=== PATIENT | female | born 1990 | race Caucasian/White ===

== ENCOUNTER → 2024-01-06 09:39 | Outpatient (REF) | payer BC, SELFPAY | LOC: RCS 09:39 | PROVIDERS: ATTENDING PHYSICIAN Nurse Practitioner; FAMILY PHYSICIAN Internal Medicine | DX: R00.2 Palpitations (principal) | CPT/HCPCS: 93225; 93226 ==

== ENCOUNTER → 2024-02-03 12:52 | Outpatient (REF) | payer BC, SELFPAY | LOC: HWRCS 12:52 | PROVIDERS: ATTENDING PHYSICIAN Nurse Practitioner; FAMILY PHYSICIAN Internal Medicine | DX: R06.02 Shortness of breath (principal) | CPT/HCPCS: 93306 ==

== ENCOUNTER → 2024-09-20 13:26 | Outpatient (REF) | payer BC, SELFPAY | LOC: PNTC 13:26 | PROVIDERS: ATTENDING PHYSICIAN Obstetrics & Gynecology | DX: Z36.0 Encounter for antenatal screening for chromosomal anomalies (principal); Z36.83 Encounter for fetal screening for congenital cardiac abnormalities; Z36.82 Encounter for antenatal screening for nuchal translucency | CPT/HCPCS: 36415; 76801; 76813 ==

== ENCOUNTER → 2024-10-15 11:16 | Outpatient (REF) | payer BC, SELFPAY | LOC: PNTC 11:16 | PROVIDERS: ATTENDING PHYSICIAN Obstetrics & Gynecology | DX: O09.819 Supervision of pregnancy resulting from assisted reproductive technology, unspecified trimester (principal); O10.119 Pre-existing hypertensive heart disease complicating pregnancy, unspecified trimester | CPT/HCPCS: 76805 ==

== ENCOUNTER 2024-11-09 14:26 | Emergency (ER) | payer BC, SELFPAY ==
[2024-11-09 14:36] VITALS: BP 126/72
[2024-11-09 14:56] LABS: % Basophils 0.4 % (0-2); % Eosinophils 2.4 % (0-6); % Immature Granulocytes 0.4 % (0-0.5); % Lymphocytes 28.1 % (20.5-51.1); % Monocytes 7.6 % (1.7-9.3); % Neutrophils 61.1 % (42.2-75.2); Absolute Eosinophils 0.2 10^3/uL (0-0.7); Absolute Lymphocytes 2.3 10^3/uL (1.2-3.4); Absolute Monocytes 0.6 10^3/uL (0.1-0.6); Absolute Neutrophils 4.9 10^3/uL (1.4-6.5); Hematocrit 30.6 % (37.0-47.0); Hemoglobin 10.3 g/dL (12.0-16.0); Mean Corp Hgb Conc. 33.7 g/dL (33.0-37.0); Mean Corpuscular Hgb 27.9 pg (27.0-31.0); Mean Corpuscular Volume 82.9 fL (81.0-99.0); Mean Platelet Volume 9.9 fL (7.4-10.4); Nucleated Red Blood Cells % 0 %; Platelet Count 338 10^3/uL (130-400); Red Blood Cell Count 3.69 10^6/uL (4.20-5.40)
[2024-11-09 15:07] LABS: ALT (SGPT) 14 U/L (0-35); AST (SGOT) 16 U/L (14-36); Albumin 3.6 g/dl (3.5-5.0); Alkaline Phosphatase 78 U/L (38-126); Blood Urea Nitrogen 9 mg/dl (7-17); Calcium 9.3 mg/dl (8.4-10.2); Carbon Dioxide 25 mmol/L (22-30); Chloride 103 mmol/L (98-107); Glucose 110 mg/dl (70-99); Potassium 3.5 mmol/L (3.5-5.1); Sodium 135 mmol/L (135-145); Total Bilirubin 0.6 mg/dl (0.2-1.3); Total Protein 6.5 g/dl (6.3-8.2); eGFR > 60.00
--- NOTE | 2024-11-09 17:45 | ED.GENMED ---
History of Present Illness
General
Chief Complaint: Heart Rate Problem
Source: patient
Exam Limitations: none
Time Seen by Provider: 11/09/24 17:36
Nursing documentation reviewed up to this point in time: agreed with
History of Present Illness
History of Present Illness:
Patient to ED with complaint of SOB, palpitations Symptoms started last PM and continue. Brought to ED by spouse for eval.
Past History
Past History
ED Past Medical History: Asthma, GERD, HTN, Hypothyroidism and Other (Pre-eclampsia hx)
Review of Systems
Review of Systems
Allergies reviewed?: Yes
All Other Systems: ROS reviewed and negative except as documented in HPI and ROS
Constitutional: Reports no symptoms
EENT: Reports no symptoms
Respiratory: Reports trouble breathing
Cardiac: Reports no symptoms
ABD/GI: Reports no symptoms
: Reports no symptoms
Musculoskeletal: Reports no symptoms
Skin: Reports no symptoms
Neurological: Reports no symptoms
Psychiatric: Reports no symptoms
Phy Exam
General Physical Exam
General Presentation: well appearing and mild distress
General age: appears stated age
General Skin: warm
General Habitus: normal
General Mental: alert
Cardiovascular Exam
Cardiovascular Exam: regular rate/rhythm
Pulmonary Exam
Pulmonary Exam: lungs clear, no respiratory distress and chest non tender
Gastrointestinal Exam
Gastrointestinal Exam: non tender and soft
Musculoskeletal Exam
Musculoskeletal Exam: full ROM
Skin Exam
Skin Exam: normal color, warm/dry and no rash
Psychiatric Exam
Psychiatric Exam: normal mood/affect
Course
Orders/Labs/Results
Orders:
Orders
11/09/24 14:35
Electrocardiogram (*1) Urgent
Reason for Study: Chest Pain
EKG- Treatment ONCE
11/09/24 14:46
Complete Blood Count/With Diff Urgent
Comprehensive Metabolic Panel Urgent
11/09/24 18:10
D-Dimer Urgent
11/09/24 19:05
CT Chest PE Study Urgent
Comment:
Reason For Exam: Chest tightness, SOB. 19weeks
11/09/24 19:15
UA Reflex to Culture [Urinalysis Reflex To Culture] Urgent
Date Specimen was Collected: 11/09/24
Time Specimen was Collected: 19:15
Abnormal Lab Results
11/09/24 11/09/24
14:46 18:10
RBC 3.69 L 10^6/uL
(4.20-5.40)
Hgb 10.3 L g/dL
(12.0-16.0)
Hct 30.6 L %
(37.0-47.0)
D-Dimer 1.54 H ug/mlFEU
(0.00-0.50)
Creatinine 0.3 L mg/dL
(0.6-1.0)
Glucose 110 H mg/dl
(70-99)
11/09/24 14:46
11/09/24 14:46
Vital Signs
Initial and Last Documented VS:
Initial Vital Signs
Temp Pulse Resp BP Pulse Ox
98.6 F 74 16 126/72 98
11/09/24 14:36 11/09/24 14:36 11/09/24 14:36 11/09/24 14:36 11/09/24 14:36
Last Documented Vital Signs
Temp Pulse Resp BP Pulse Ox
98.6 F 74 16 126/72 98
11/09/24 14:36 11/09/24 14:36 11/09/24 14:36 11/09/24 14:36 11/09/24 14:36
*Radiology
Radiology exam reviewed: radiology read reviewed
*Pulse Oximetry
Patient hypoxic: no
*Critical Care Note
Total Time (30-74mins, 75-104mins- exclusive of procedures): Not Applicable
Update Note
Update Note:
Patient to ED with complaint of SOB x 24 hours. SHe is 19 weeks . States SOB come on suddenly. Labs reviewed. Ddimer 1.5. Dr. Copeland aware. Sent for CT, results neg for PE. Pulse ox remains 96-98% RA. HRR. WIll discharge home and
she will continue to f/u with OB and PCP. Given instructions on s/s to return to ED and she is agreeable to plan.
ED Attending Note
-
Portions of this chart may have been created with voice recognition software.� Occasional wrong word or��sound alike� substitutions may have occurred due to the inherent limitations of voice recognition software.
Discharge Plan
Departure
Patient Disposition: Home (Routine Discharge)
Date of Disposition: 11/09/24
Time of Disposition: 20:02
Patient with high blood pressure during this ER visit?: No
Condition: Good
Covid-19: Not Applicable
Discharge Problem:
GRAHAM (dyspnea on exertion)
Instructions: Shortness of breath, Palpitations (DC)
Prescriptions:
No Action
Feosol
1 tab PO DAILY
Vitamin
1 tab PO DAILY
Synthroid
50 mcg PO DAILY
famotidine
1 tab PO DAILY
magnesium citrate
1 PO DAILY
montelukast
ibuprofen 600 mg Tablet
600 mg PO Q6HPRN PRN (Reason: CRAMPS) Qty: 90 0RF
labetalol 100 mg Tablet
100 mg PO BID Qty: 90 0RF
Referrals:
Lydia Bolaños MD [Family Provider] - Follow up in 2-3 days
Activity Restrictions/Additional Instructions:
Return to the emergency department immediately for any changes in/worsening of your symptoms.
Interventions
Interventions:
*Risk Screen - Suicide Last Done: 11/09/24 14:36
*Neglect/Abuse Screening Last Done: 11/09/24 14:36
ED- Fall Risk Assessment Last Done: 11/09/24 18:14
ED- Cardiac Assessment Last Done: 11/09/24 18:14
ED- Pulmonary Assessment Last Done: 11/09/24 18:14
Discharge Date and Time
Print Language: CUBAN
[2024-11-09 18:28] LABS: D-Dimer 1.54 ug/mlFEU (0.00-0.50)
[2024-11-09 19:14] VITALS: BP 124/67
[2024-11-09 20:00] VITALS: BP 110/61
[2024-11-09 20:04] VITALS: BP 107/64
[2024-11-09 20:13] LABS: Urine Albumin Negative (Neg - Trace); Urine Bilirubin Negative (Negative); Urine Character Clear (Clear); Urine Color Yellow; Urine Glucose Negative (Negative); Urine Ketone Negative (Negative); Urine Leukocyte Negative (Negative); Urine Nitrite Negative (Negative); Urine Occult Blood Negative (Negative); Urine Urobilinogen Negative (Neg - 1+)
== END 2024-11-09 20:29 | disposition home or self-care (01) ==
LOC: EMR 14:26
PROVIDERS: Nurse Practitioner; EMERGENCY PHYSICIAN Emergency Medicine; FAMILY PHYSICIAN Internal Medicine
DX: O26.892 Other specified pregnancy related conditions, second trimester (principal); R06.09 Other forms of dyspnea; Z3A.19 19 weeks gestation of pregnancy
CPT/HCPCS: 99285; 71275; 80053; 81003; 85025; 85379; 93005; Q9967

== ENCOUNTER → 2024-11-12 13:24 | Outpatient (REF) | payer BC, SELFPAY | LOC: PNTC 13:24 | PROVIDERS: ATTENDING PHYSICIAN Obstetrics & Gynecology | DX: O10.119 Pre-existing hypertensive heart disease complicating pregnancy, unspecified trimester (principal); O09.819 Supervision of pregnancy resulting from assisted reproductive technology, unspecified trimester | CPT/HCPCS: 76811; 76817 ==

== ENCOUNTER → 2024-12-22 09:36 | Outpatient (REF) | payer BC, SELFPAY | LOC: RCS 09:36 | PROVIDERS: ATTENDING PHYSICIAN Student in an Organized Health Care Education/Training Program; FAMILY PHYSICIAN Internal Medicine | DX: R00.2 Palpitations (principal) | CPT/HCPCS: 93225; 93226 ==

== ENCOUNTER 2025-01-07 12:43 | Observation (INO) | payer BC, SELFPAY ==
[2025-01-07 13:46] VITALS: BP 128/57; BMI 33.4
[2025-01-07 13:50] LABS: % Basophils 0.3 % (0-2); % Eosinophils 2.5 % (0-6); % Immature Granulocytes 0.6 % (0-0.5); % Lymphocytes 18.2 % (20.5-51.1); % Monocytes 7.3 % (1.7-9.3); % Neutrophils 71.1 % (42.2-75.2); Absolute Eosinophils 0.3 10^3/uL (0-0.7); Absolute Immature Granulocytes 0.1 10^3/uL (0-0.05); Absolute Lymphocytes 1.8 10^3/uL (1.2-3.4); Absolute Monocytes 0.7 10^3/uL (0.1-0.6); Absolute Neutrophils 7.1 10^3/uL (1.4-6.5); Hematocrit 28.2 % (37.0-47.0); Hemoglobin 9.5 g/dL (12.0-16.0); Mean Corp Hgb Conc. 33.7 g/dL (33.0-37.0); Mean Corpuscular Hgb 28.1 pg (27.0-31.0); Mean Corpuscular Volume 83.4 fL (81.0-99.0); Nucleated Red Blood Cells % 0 %; Platelet Count 319 10^3/uL (130-400); Red Blood Cell Count 3.38 10^6/uL (4.20-5.40); Red Cell Dist. Width 13.7 % (11.5-14.5)
[2025-01-07 14:09] LABS: ALT (SGPT) 12 U/L (0-35); AST (SGOT) 17 U/L (14-36); Albumin 3.1 g/dl (3.5-5.0); Alkaline Phosphatase 104 U/L (38-126); Blood Urea Nitrogen 6 mg/dl (7-17); Calcium 9.1 mg/dl (8.4-10.2); Carbon Dioxide 27 mmol/L (22-30); Chloride 104 mmol/L (98-107); Estimated Creatinine Clearance 116 ml/min; Glucose 109 mg/dl (70-99); Potassium 3.1 mmol/L (3.5-5.1); Sodium 138 mmol/L (135-145); Total Bilirubin 0.7 mg/dl (0.2-1.3); Total Protein 5.8 g/dl (6.3-8.2); eGFR > 60.00
[2025-01-07 14:12] LABS: Urine Albumin 1+ (Neg - Trace); Urine Bilirubin Negative (Negative); Urine Character Clear (Clear); Urine Color Yellow; Urine Glucose Negative (Negative); Urine Ketone Negative (Negative); Urine Leukocyte Negative (Negative); Urine Nitrite Negative (Negative); Urine Occult Blood 1+ (Negative); Urine Specific Gravity 1.015 (<1.030); Urine Urobilinogen Negative (Neg - 1+)
[2025-01-07 14:44] LABS: Protein/creatinine Ratio 0.2; Urine Protein 14 mg/dl
[2025-01-07 15:20] LABS: Urine Amorphous Seen; Urine Squamous Cell 26-30 /LPF (Few); Urine Urothelial Cell 0-2 /LPF (FEW)
[2025-01-07 15:23] LABS: Urine White Cell 0-2 /HPF (0-5)
== END 2025-01-07 14:31 | disposition home or self-care (01) ==
LOC: PNTC-IN 12:43
PROVIDERS: ADMITTING PHYSICIAN Obstetrics & Gynecology
DX: O10.913 Unspecified pre-existing hypertension complicating pregnancy, third trimester (principal); R06.02 Shortness of breath; Z3A.28 28 weeks gestation of pregnancy
CPT/HCPCS: 80053; 81003; 81015; 82570; 84156; 85025; 86850; 86900; 86901; 87502; 87811; G0378

== ENCOUNTER 2025-01-07 14:34 | Emergency (ER) | payer BC, SELFPAY ==
[2025-01-07 14:54] VITALS: BP 133/71
[2025-01-07 19:42] VITALS: BP 117/81
--- NOTE | 2025-01-07 19:52 | ED.GENMED ---
History of Present Illness
<JOJO Malik - Last Filed: 01/07/25 22:29>
General
Chief Complaint: Breathing Problem
Source: patient and spouse
Exam Limitations: none
Time Seen by Provider: 01/07/25 19:40
History of Present Illness
History of Present Illness:
34 y/o 28-weeks female with a PMH of asthma, HTN, hypothyroid, GERD presenting to the ED c/o SOB and headache x 2 days. Pt states the SOB started 2 days ago, states she thought it was an asthma exacerbation so she has been using her
albuterol with minimal relief. SOB and headache are both exacerbated with exertion. The headache is intermittent, she describes it as 'all over'. She has been taking Tylenol with slight relief of the headache but it doesn't fully go away, last dose
of Tylenol at 10 am today. Pt reports associated cough and nasal congestion that started yesterday. Has not tried anything for cough or congestion. She also reports 2 episodes of post-tussive vomiting. Denies fever, sore throat, chest pain, vision
changes.
Past History
<JOJO Malik - Last Filed: 01/07/25 22:29>
Past History
ED Past Medical History: Asthma, GERD, HTN, Hypothyroidism and Other (Pre-eclampsia hx)
Phy Exam
<JOJO Malik - Last Filed: 01/07/25 22:29>
General Physical Exam
General Presentation: well appearing and no apparent distress
General age: appears stated age
General Skin: warm and dry
General Habitus: normal and other ( )
General Mental: alert
General Hydration: appears well hydrated
ENT Exam
ENT Exam: neck supple and normocephalic
Eye Exam
Eye Exam: conjunctiva normal
Cardiovascular Exam
Cardiovascular Exam: regular rate/rhythm, no gallop, no murmur and normal peripheral pulses
Pulmonary Exam
Pulmonary Exam: lungs clear, no respiratory distress, no rales, no crackles, no rhonchi and no wheezing
Cough: non productive cough
Gastrointestinal Exam
Gastrointestinal Exam: normal bowel sounds
Skin Exam
Skin Exam: normal color and warm/dry
Course
<ST KingPA - Last Filed: 01/07/25 22:29>
Orders/Labs/Results
Orders:
Orders
01/07/25 20:19
COVID-19 Antigen Urgent
Source: Nasal Swab
Influenza A+B Rapid Molecular Urgent
ASTRID Source: Nasal Swab
Specimen Description:
01/07/25 20:23
Potassium Chloride 10% Elixir [KCl Elixir] 40 meq PO NOW STA
Prednisone [Deltasone] 50 mg PO NOW STA
01/07/25 21:19
Ipratropium/Albuterol Sulfate [Duoneb] 3 ml INH R NOW STA
01/07/25 21:27
Influenza A+B Rapid Molecular Urgent
ASTRID Source: [place]AB
Specimen Description:
Vital Signs
Initial and Last Documented VS:
Initial Vital Signs
Temp Pulse Resp BP Pulse Ox
98.3 F 90 18 133/71 95
01/07/25 14:54 01/07/25 14:54 01/07/25 14:54 01/07/25 14:54 01/07/25 14:54
Last Documented Vital Signs
Temp Pulse Resp BP Pulse Ox
98.3 F 99 20 134/79 98
01/07/25 14:54 01/07/25 22:22 01/07/25 22:22 01/07/25 22:22 01/07/25 22:22
<Herbie Berg DO - Last Filed: 01/08/25 02:58>
Orders/Labs/Results
Orders:
Orders
01/07/25 20:19
COVID-19 Antigen Urgent
Source: Nasal Swab
Influenza A+B Rapid Molecular Urgent
ASTRID Source: Nasal Swab
Specimen Description:
01/07/25 20:23
Potassium Chloride 10% Elixir [KCl Elixir] 40 meq PO NOW STA
Prednisone [Deltasone] 50 mg PO NOW STA
01/07/25 21:19
Ipratropium/Albuterol Sulfate [Duoneb] 3 ml INH R NOW STA
01/07/25 21:27
Influenza A+B Rapid Molecular Urgent
ASTRID Source: [place]AB
Specimen Description:
Vital Signs
Initial and Last Documented VS:
Initial Vital Signs
Temp Pulse Resp BP Pulse Ox
98.3 F 90 18 133/71 95
01/07/25 14:54 01/07/25 14:54 01/07/25 14:54 01/07/25 14:54 01/07/25 14:54
Last Documented Vital Signs
Temp Pulse Resp BP Pulse Ox
98.3 F 99 20 134/79 98
01/07/25 14:54 01/07/25 22:22 01/07/25 22:22 01/07/25 22:22 01/07/25 22:22
<Herbie Berg DO - Last Filed: 01/08/25 02:58>
MDM/Problems Addressed
Differential Diagnosis Includes:
PE, pneumonia, asthma exacerbation
MDM/Problems Addressed:
34-year-old female with asthma exacerbation. Mild hypokalemia. Stable for discharge. Follow with primary care. Short course of prednisone.
Chronic conditions affecting care: Asthma
Acute Exacerbation and/or Progression of Chronic Illness: Asthma
<JOJO Malik - Last Filed: 01/07/25 22:29>
*Critical Care Note
Total Time (30-74mins, 75-104mins- exclusive of procedures): Not Applicable
<Herbie Berg DO - Last Filed: 01/08/25 02:58>
*Pulse Oximetry
Patient hypoxic: no
Data Reviewed
Review of Other/Old Records Reveals: Labs
Source: records (Labs today show potassium 3.1)
<Herbie Berg, DO - Last Filed: 01/08/25 02:58>
Patient Management
Social determinants of health affecting care: Living situation
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 Hilton)
Escalation/DeEscalation of care consider admission/obs:
Admit not indicated
ED Attending Note
<JOJO Malik - Last Filed: 01/07/25 22:29>
-
Portions of this chart may have been created with voice recognition software.� Occasional wrong word or��sound alike� substitutions may have occurred due to the inherent limitations of voice recognition software.
<Herbie Berg, DO - Last Filed: 01/08/25 02:58>
ED Attending Note
Patient seen and examined by attending physician: Yes
I performed a history and physical exam of patient and discussed management with resident, I reviewed resident's note and agree with documented findings and plan of care.: Yes
ED Attending Note:
I reviewed and agree with history treatment plan by JOJO Malik. My exam revealed
Physical Exam
General: no apparent distress, not acutely ill
Neck: supple. no meningeal signs. normal posterior pharynx
Heart: s1/s2 regular rate and rhythm, no murmur. equal radial
pulses.
HEENT: Pupils equal round reactive to light, EOMI
Lungs: no acute respiratory distress. clear bilaterally, intermittent cough
Abdomen: normal bowel sounds. not tender. no CVAT, gravid uterus
Neuro: alert and oriented. no focal neurological deficits cranial nerves II through XII intact
Skin: no rash
Psychiatric: well kept. interactive and cooperative
Extremities: no edema. no calf tenderness. negative homans. good distal pulses
This is a 34-year-old female with cough, suspect viral origin versus asthma exacerbation. Will treat with prednisone burst 50 mg daily, and DuoNeb after negative influenza and COVID testing.
Discharge Plan
Departure
Patient Disposition: Home (Routine Discharge)
Date of Disposition: 01/07/25
Time of Disposition: 22:18
Patient with high blood pressure during this ER visit?: No
Condition: Good
Discharge Problem:
Asthma exacerbation
Instructions: Asthma, Adult (DC)
Prescriptions:
New
prednisone 50 mg tablet
50 mg PO DAILY Qty: 5 0RF
No Action
Vitamin
1 tab PO DAILY
Synthroid
50 mcg PO DAILY
famotidine
1 tab PO DAILY
montelukast
10 mg PO 1XD
labetalol 100 mg Tablet
100 mg PO BID Qty: 90 0RF
sertraline [Zoloft] 50 mg Tablet
50 mg PO DAILY
aspirin 81 mg Tablet
81 mg PO DAILY
albuterol 90 mcg/actuation Aerosol
INHALATION
Referrals:
Lydia Bolaños MD [Family Provider] -
Interventions
Interventions:
*Risk Screen - Suicide Last Done: 01/07/25 14:54
*General Assessment Last Done: 01/07/25 14:54
*Nursing Disposition Last Done: 01/07/25 22:29
ED- Pulmonary Assessment Last Done: 01/07/25 19:00
Discharge Date and Time
Discharge Date/Time: 01/07/25 22:29
Print Language: SERBIAN
[2025-01-07] MEDS: DELTASONE 50 MG PO (20:54)
[2025-01-07] MEDS: KCL ELIXIR 40 MEQ PO (20:55)
[2025-01-07 21:04] LABS: COVID-19 Antigen Negative (Negative)
[2025-01-07] MEDS: DUONEB 3 ML INH (21:29)
[2025-01-07 22:22] VITALS: BP 134/79
== END 2025-01-07 22:29 | disposition home or self-care (01) ==
LOC: EMR 14:34
PROVIDERS: EMERGENCY PHYSICIAN Emergency Medicine; FAMILY PHYSICIAN Internal Medicine
DX: O99.513 Diseases of the respiratory system complicating pregnancy, third trimester (principal); J45.901 Unspecified asthma with (acute) exacerbation; O10.913 Unspecified pre-existing hypertension complicating pregnancy, third trimester; O99.283 Endocrine, nutritional and metabolic diseases complicating pregnancy, third trimester; E03.9 Hypothyroidism, unspecified; O09.293 Supervision of pregnancy with other poor reproductive or obstetric history, third trimester; Z11.52 Encounter for screening for COVID-19; Z3A.28 28 weeks gestation of pregnancy
CPT/HCPCS: 94640; 99283; 87502; 87811

== ENCOUNTER 2025-01-23 16:47 | Observation (INO) | payer BC, SELFPAY ==
[2025-01-23 17:19] VITALS: BP 134/79; BMI 33.2
[2025-01-23 17:21] LABS: Hematocrit 27.7 % (37.0-47.0); Hemoglobin 9.7 g/dL (12.0-16.0); Mean Corpuscular Hgb 28.4 pg (27.0-31.0); Mean Platelet Volume 10.3 fL (7.4-10.4); Platelet Count 324 10^3/uL (130-400); Red Blood Cell Count 3.42 10^6/uL (4.20-5.40); Red Cell Dist. Width 13.2 % (11.5-14.5); White Blood Cell Count 8.9 10^3/uL (4.8-10.8)
[2025-01-23 17:35] LABS: ALT (SGPT) 18 U/L (0-35); AST (SGOT) 22 U/L (14-36); Albumin 3.3 g/dl (3.5-5.0); Alkaline Phosphatase 108 U/L (38-126); Blood Urea Nitrogen 9 mg/dl (7-17); Calcium 9.7 mg/dl (8.4-10.2); Carbon Dioxide 27 mmol/L (22-30); Chloride 102 mmol/L (98-107); Estimated Creatinine Clearance 116 ml/min; Glucose 100 mg/dl (70-99); Sodium 136 mmol/L (135-145); Total Protein 6.1 g/dl (6.3-8.2); eGFR > 60.00
[2025-01-23 17:37] LABS: Protein/creatinine Ratio 0.5; Urine Protein 34 mg/dl
== END 2025-01-23 18:20 | disposition home or self-care (01) ==
LOC: PNTC-IN 16:47
PROVIDERS: ADMITTING PHYSICIAN Obstetrics & Gynecology; ATTENDING PHYSICIAN Obstetrics & Gynecology
DX: O10.913 Unspecified pre-existing hypertension complicating pregnancy, third trimester (principal); Z3A.28 28 weeks gestation of pregnancy
CPT/HCPCS: 80053; 82570; 84156; 85027; G0378

== ENCOUNTER → 2025-01-28 09:01 | Outpatient (REF) | payer BC, SELFPAY ==
--- NOTE | 2025-01-28 08:41 | PN.DIAED06 ---
Meal Plan - Gestational
- Breakfast
Gestational Diabetes Meal Plan Name: 2000 calories
Breakfast - Total Carbohydrate (grams): 45 (15 g. = 1 serving carb)
Breakfast - Starch Carbohydrate: 2 (carb= starch, milk, fruit)
Breakfast - Fruit Carbohydrate: 0 (no fruit before noon)
Breakfast - Milk Carbohydrate: 1
Breakfast - Nonstarchy Vegetables: Yes
Breakfast - Meat/Protein: 1 (1 serving protein = 1 oz = 7 g)
Breakfast - Fat: 2
- Morning Snack
Morning Snack - Total Carbohydrate (grams): 30
Morning Snack - Starch Carbohydrate: 1
Morning Snack - Fruit Carbohydrate: 0 (no fruit before noon)
Morning Snack - Milk Carbohydrate: 1
Morning Snack - Nonstarchy Vegetables: Yes
Morning Snack - Meat/Protein: 0
Morning Snack - Fat: 0
- Lunch
Lunch - Total Carbohydrate (grams): 45
Lunch - Starch Carbohydrate: 1
Lunch - Fruit Carbohydrate: 1
Lunch - Milk Carbohydrate: 1
Lunch - Nonstarchy Vegetables: Yes
Lunch - Meat/Protein: 2
Lunch - Fat: 2
- Afternoon Snack
Afternoon Snack - Total Carbohydrate (grams): 30
Afternoon Snack - Starch Carbohydrate: 1
Afternoon Snack - Fruit Carbohydrate: 1
Afternoon Snack - Milk Carbohydrate: 0
Afternoon Snack - Nonstarchy Vegetables: Yes
Afternoon Snack - Meat/Protein: 1
Afternoon Snack - Fat: 0
- Dinner
Dinner - Total Carbohydrate (grams): 45
Dinner - Starch Carbohydrate: 2
Dinner - Fruit Carbohydrate: 1
Dinner - Milk Carbohydrate: 0
Dinner - Nonstarchy Vegetables: Yes
Dinner - Meat/Protein: 2
Dinner - Fat: 2
- Evening Snack
Evening Snack - Total Carbohydrate (grams): 45
Evening Snack - Starch Carbohydrate: 1
Evening Snack - Fruit Carbohydrate: 1
Evening Snack - Milk Carbohydrate: 1
Evening Snack - Nonstarchy Vegetables: Yes
Evening Snack - Meat/Protein: 1
Evening Snack - Fat: 0
--- NOTE | 2025-01-28 09:05 | PN.DIAED06 ---
Meal Plan - Gestational
- Breakfast
Gestational Diabetes Meal Plan Name: 1800 calories
Breakfast - Total Carbohydrate (grams): 30 (15 g = 1 serving )
Breakfast - Starch Carbohydrate: 1 (carb = starch, milk, fruit)
Breakfast - Fruit Carbohydrate: 0 (no fruit before noon)
Breakfast - Milk Carbohydrate: 1
Breakfast - Nonstarchy Vegetables: Yes
Breakfast - Meat/Protein: 1 (1 serving protein = 1 oz = 7 g)
Breakfast - Fat: 2
- Morning Snack
Morning Snack - Total Carbohydrate (grams): 30
Morning Snack - Starch Carbohydrate: 1
Morning Snack - Fruit Carbohydrate: 0 (no fruit before noon)
Morning Snack - Milk Carbohydrate: 1
Morning Snack - Nonstarchy Vegetables: Yes
Morning Snack - Meat/Protein: 0.5
Morning Snack - Fat: 0
- Lunch
Lunch - Total Carbohydrate (grams): 45
Lunch - Starch Carbohydrate: 2
Lunch - Fruit Carbohydrate: 1
Lunch - Milk Carbohydrate: 0
Lunch - Nonstarchy Vegetables: Yes
Lunch - Meat/Protein: 2
Lunch - Fat: 1
- Afternoon Snack
Afternoon Snack - Total Carbohydrate (grams): 30
Afternoon Snack - Starch Carbohydrate: 1
Afternoon Snack - Fruit Carbohydrate: 1
Afternoon Snack - Milk Carbohydrate: 0
Afternoon Snack - Nonstarchy Vegetables: Yes
Afternoon Snack - Meat/Protein: 1
Afternoon Snack - Fat: 0
- Dinner
Dinner - Total Carbohydrate (grams): 45
Dinner - Starch Carbohydrate: 2
Dinner - Fruit Carbohydrate: 0
Dinner - Milk Carbohydrate: 1
Dinner - Nonstarchy Vegetables: Yes
Dinner - Meat/Protein: 2
Dinner - Fat: 2
- Evening Snack
Evening Snack - Total Carbohydrate (grams): 30
Evening Snack - Starch Carbohydrate: 1
Evening Snack - Fruit Carbohydrate: 0
Evening Snack - Milk Carbohydrate: 1
Evening Snack - Nonstarchy Vegetables: Yes
Evening Snack - Meat/Protein: 1
Evening Snack - Fat: 1
--- NOTE | 2025-01-28 10:39 | PN.DE ---
Diabetes Education
- -
01/28/2025 GESTATIONAL DIABETES CONSULT
Met with Anaya today for medical nutrition therapy. She is G4, P0121 currently at 31 weeks of gestation, with an estimated due date of 03/31/2025.
She has been diagnosed with pre- eclampsia, is currently taking 60 g Nifedipine QD. She also has PMH of Asthma.
Explained glucose metabolism in body and what occurs during to cause increase blood sugar. Discussed importance of keeping BS well controlled to avoid complications to the baby during and after (macrosomia, hypoglycemia).
Discussed macronutrients, provided with 1800 max GDM meal plan, she states that she has been eating too many carbohydrates and eating out often.
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 Discussed exercise can help lower glucose, especially after eating.
Anaya presented to the appointment with a new Glucose monitor- [employer] Verio with supplies. Reviewed proper testing technique, testing sites and testing pattern. She is aware to test FBS and 2 hr pp each meal. Expected results for FBS 60-90,
<95 mg/dl preferred and 2 hr pp <120 mg/dl. Noted for blood sugar of 106 mg/dl fasting. Log sheet provided for her to record results, she will send a 4-day meal log with all her FBG and 2hr Post prandial glucose numbers to this office for review. In
addition, she will send all her glucose readings [facility] every Tuesday.
She was encouraged to reach out should she require insulin.
== END ==
LOC: DES 09:01
PROVIDERS: ATTENDING PHYSICIAN Obstetrics & Gynecology
DX: O24.419 Gestational diabetes mellitus in pregnancy, unspecified control (principal)
CPT/HCPCS: 99078

== ENCOUNTER → 2025-02-07 08:15 | Outpatient (REF) | payer BC, SELFPAY | LOC: PNTC 08:15 | PROVIDERS: ATTENDING PHYSICIAN Obstetrics & Gynecology | DX: O14.00 Mild to moderate pre-eclampsia, unspecified trimester (principal) | CPT/HCPCS: 59025; 76818 ==

== ENCOUNTER 2025-02-14 09:28 | Observation (INO) | payer BC, SELFPAY ==
[2025-02-14 09:46] VITALS: BP 108/66; BMI 33.2
== END 2025-02-14 13:23 | disposition home or self-care (01) ==
LOC: LDRP 09:28
PROVIDERS: ADMITTING PHYSICIAN Student in an Organized Health Care Education/Training Program; ATTENDING PHYSICIAN Obstetrics & Gynecology
DX: O24.410 Gestational diabetes mellitus in pregnancy, diet controlled (principal); O10.013 Pre-existing essential hypertension complicating pregnancy, third trimester; O99.513 Diseases of the respiratory system complicating pregnancy, third trimester; O36.8390 Maternal care for abnormalities of the fetal heart rate or rhythm, unspecified trimester, not applicable or unspecified
CPT/HCPCS: 59025; 76816; 76818; G0378

== ENCOUNTER 2025-02-15 13:11 | Emergency (ER) | payer BC, SELFPAY ==
[2025-02-15 13:12] VITALS: BP 125/88
[2025-02-15 14:55] VITALS: BP 128/79
[2025-02-15 14:56] VITALS: BMI 33.6
[2025-02-15 14:57] VITALS: BP 128/79
[2025-02-15] MEDS: DELTASONE 50 MG PO (15:49)
[2025-02-15] MEDS: DUONEB 3 ML INH ×2 (15:49→16:59)
--- NOTE | 2025-02-15 15:57 | ED.GENMED ---
History of Present Illness
General
Chief Complaint: Breathing Problem
Source: patient
Exam Limitations: none
Time Seen by Provider: 02/15/25 14:42
Nursing documentation reviewed up to this point in time: agreed with
History of Present Illness
History of Present Illness:
Patient with history of asthma, currently 33 weeks , presents to ED secondary to 5-day history of intermittent cough, along with increased work of breathing, despite utilizing her medications at home. Denies fever or chills. Denies nausea,
vomiting, or diarrhea. Denies chest pain. Denies abdominal pain. Denies bleeding. Patient does feel the baby move. Patient was seen at her [employer] physician's office yesterday and had her fetus monitored. She has an appointment next week for
reevaluation. Patient states that her symptoms are similar to what she has experienced past, with asthma flareup.
Past History
Past History
ED Past Medical History: Asthma, GERD, HTN, Hypothyroidism and Other (Pre-eclampsia hx)
Review of Systems
Review of Systems
Allergies reviewed?: Yes
All Other Systems: ROS reviewed and negative except as documented in HPI and ROS
Constitutional: Reports no symptoms
Respiratory: Reports cough and trouble breathing
Cardiac: Reports no symptoms
ABD/GI: Reports no symptoms; Denies abdominal pain or vomiting
: Reports no symptoms
Musculoskeletal: Reports no symptoms
Skin: Reports no symptoms
Neurological: Reports no symptoms
Phy Exam
Physical Exam
Physical Exam:
Physical Exam
General: no apparent distress, not acutely ill. afebrile
Head: nc/at. eomi
Neck: supple. no meningeal signs.
Heart: s1/s2 regular rate and rhythm
Lungs: no acute respiratory distress. clear bilaterally, but mildly diminished
Abdomen: normal bowel sounds. not tender.
Neuro: alert and oriented x 3. no focal neurological deficits
Skin: no rash
Psychiatric: well kept. interactive and cooperative
Extremities: no edema. no calf tenderness.
Course
Orders/Labs/Results
Orders:
Orders
02/15/25 15:41
Ipratropium/Albuterol Sulfate [Duoneb] 3 ml INH R NOW STA
Prednisone [Deltasone] 50 mg PO NOW STA
02/15/25 16:46
Ipratropium/Albuterol Sulfate [Duoneb] 3 ml INH R NOW STA
Vital Signs
Initial and Last Documented VS:
Initial Vital Signs
Temp Pulse Resp BP Pulse Ox
98.5 F 105 20 125/88 97
02/15/25 13:12 02/15/25 13:12 02/15/25 13:12 02/15/25 13:12 02/15/25 13:12
Last Documented Vital Signs
Temp Pulse Resp BP Pulse Ox
98.5 F 86 16 128/79 98
02/15/25 14:57 02/15/25 14:57 02/15/25 14:57 02/15/25 14:57 02/15/25 16:15
MDM/Problems Addressed
MDM/Problems Addressed:
Patient reports improvement after treatment. Patient otherwise remains afebrile, hemodynamically stable, and without acute respiratory distress. As such, after discussion, decision made to discharge patient home with short course of prednisone
along with prescription for Z-Alberto, to be used, if symptoms persist beyond 48 hours.
*Critical Care Note
Total Time (30-74mins, 75-104mins- exclusive of procedures): Not Applicable
ED Attending Note
-
Portions of this chart may have been created with voice recognition software.� Occasional wrong word or��sound alike� substitutions may have occurred due to the inherent limitations of voice recognition software.
Discharge Plan
Departure
Patient Disposition: Home (Routine Discharge)
Date of Disposition: 02/15/25
Time of Disposition: 17:27
Patient with high blood pressure during this ER visit?: Yes
Condition: Good
Discharge Problem:
Asthma with bronchitis
Instructions: Asthma, Adult (DC)
Prescriptions:
New
prednisone 50 mg tablet
50 mg PO DAILY Qty: 2 0RF
azithromycin [Zithromax Z-Alberto] 250 mg tablet
250 mg PO DAILY 6 Days Qty: 6 0RF
No Action
Vitamin
1 tab PO DAILY
Synthroid
50 mcg PO DAILY
famotidine
1 tab PO DAILY
montelukast
10 mg PO 1XD
nifedipine 60 mg Tablet Extended Release
60 mg PO DAILY
fluticasone propionate 250 mcg/actuation Blister With Device
1 inh INHALATION BID
potassium 20 mg Tablet,Chewable
1 mg PO DAILY
iron 50 mg iron Tablet
1 tab PO DAILY
sertraline [Zoloft] 50 mg Tablet
50 mg PO DAILY
aspirin 81 mg Tablet
81 mg PO DAILY
albuterol 90 mcg/actuation Aerosol
1 mcg INHALATION DIRECTED
(DME) blood-glucose meter [OneTouch Verio Flex meter] Misc
Qty: 1 0RF
Rx Instructions:
Pt testing 4 times a day
(DME) OneTouch Verio test strips Strip
Qty: 200 0RF
Rx Instructions:
Pt Testing 4 times a day
(DME) lancets [Onetouch Delica Safety Lancet] 30 gauge Misc
Qty: 200 0RF
Rx Instructions:
Pt testing 4 times a day
Referrals:
Lydia Bolaños MD [Family Provider, Internal Medicine]
Stand Alone Forms: Return to Work
Activity Restrictions/Additional Instructions:
As discussed, please follow-up with your primary care physician with any further concerns. Please consider return to ED with worsening symptoms.
Interventions
Interventions:
*Risk Screen - Suicide Last Done: 02/15/25 13:12
*General Assessment Last Done: 02/15/25 14:57
*Neglect/Abuse Screening Last Done: 02/15/25 13:12
*ED- Fall Risk Assessment Last Done: 02/15/25 14:57
*ED COVID-19 Vaccine History Last Done: 02/15/25 14:57
*Nursing Disposition Last Done: 02/15/25 17:55
ED- Cardiac Assessment Last Done: 02/15/25 14:57
ED- Pulmonary Assessment Last Done: 02/15/25 14:57
Discharge Date and Time
Discharge Date/Time: 02/15/25 17:44
Print Language: SAUDI ARABIAN
== END 2025-02-15 17:44 | disposition home or self-care (01) ==
LOC: EMR 13:11
PROVIDERS: EMERGENCY PHYSICIAN Emergency Medicine; FAMILY PHYSICIAN Internal Medicine
DX: O99.891 Other specified diseases and conditions complicating pregnancy (principal); O99.513 Diseases of the respiratory system complicating pregnancy, third trimester; J45.909 Unspecified asthma, uncomplicated; O99.283 Endocrine, nutritional and metabolic diseases complicating pregnancy, third trimester; E03.9 Hypothyroidism, unspecified; O10.913 Unspecified pre-existing hypertension complicating pregnancy, third trimester
CPT/HCPCS: 94640; 99284

== ENCOUNTER 2025-02-20 20:55 | Inpatient (IN) | payer BC, SELFPAY ==
[2025-02-20 21:00] VITALS: BP 140/86; BMI 32.9
[2025-02-20] MEDS: LR 1000 IV ×2 (21:55→22:41)
[2025-02-20] MEDS: CELESTONE SOLUSPAN 2 MG IM (22:04)
[2025-02-20 22:11] LABS: Hematocrit 29.8 % (37.0-47.0); Hemoglobin 10.6 g/dL (12.0-16.0); Mean Corp Hgb Conc. 35.6 g/dL (33.0-37.0); Mean Corpuscular Hgb 29.2 pg (27.0-31.0); Mean Corpuscular Volume 82.1 fL (81.0-99.0); Mean Platelet Volume 10.4 fL (7.4-10.4); Platelet Count 327 10^3/uL (130-400); Red Blood Cell Count 3.63 10^6/uL (4.20-5.40); Red Cell Dist. Width 14.5 % (11.5-14.5)
[2025-02-20 22:12] LABS: Glucose - Point of Care 85 mg/dl (70-99)
[2025-02-20 22:25] LABS: ALT (SGPT) 265 U/L (0-35); AST (SGOT) 171 U/L (14-36); Albumin 3.4 g/dl (3.5-5.0); Alkaline Phosphatase 257 U/L (38-126); Blood Urea Nitrogen 6 mg/dl (7-17); Calcium 9.6 mg/dl (8.4-10.2); Carbon Dioxide 24 mmol/L (22-30); Chloride 107 mmol/L (98-107); Estimated Creatinine Clearance 116 ml/min; Glucose 85 mg/dl (70-99); LDH 213 U/L (120-246); Potassium 3.4 mmol/L (3.5-5.1); Sodium 137 mmol/L (135-145); Total Bilirubin 1.1 mg/dl (0.2-1.3); Total Protein 6.2 g/dl (6.3-8.2); Uric Acid 3.2 mg/dl (2.5-6.2); eGFR > 60.00
[2025-02-20 22:32] LABS: Urine Albumin 2+ (Neg - Trace); Urine Bilirubin Negative (Negative); Urine Character Clear (Clear); Urine Color Yellow; Urine Glucose Negative (Negative); Urine Ketone 3+ (Negative); Urine Leukocyte Negative (Negative); Urine Nitrite Negative (Negative); Urine Occult Blood 4+ (Negative); Urine Urobilinogen 1+ (Neg - 1+)
[2025-02-20] MEDS: BICITRA 30 ML PO (22:40)
[2025-02-20] MEDS: TYLENOL 1000 MG PO (22:40)
[2025-02-20] MEDS: ANCEF 10 IV (22:40)
[2025-02-20 22:42] LABS: Urine Bacteria Few (Negative); Urine Red Blood Cell >100 /HPF (0-2); Urine White Cell 0-2 /HPF (0-5)
[2025-02-20 22:43] LABS: Urine Mucus Few
[2025-02-20 23:31] LABS: Protein/creatinine Ratio 0.2; Urine Protein 17 mg/dl
[2025-02-20 23:36] LABS: B.E. Cord ABG 2.9 mMOL/L; Cord ABG Comment CORD BLOOD; HCO3 Cord ABG 30.2 mmol/L; O2 Saturation % Cord ABG 36.7 %; PCO2 Cord ABG 56 mmHg; PO2 Cord ABG 18 mmHg; pH Cord ABG 7.34
[2025-02-20 23:38] LABS: B.E. Cord ABG 1.7 mMOL/L; HCO3 Cord ABG 28.2 mmol/L; PCO2 Cord ABG 51 mmHg; PO2 Cord ABG 22 mmHg; pH Cord ABG 7.35
[2025-02-20 23:40] LABS: O2 Saturation % Cord ABG 33.8 %
--- NOTE | 2025-02-21 00:18 | CON.NEO ---
Consultation
-
Date/Time Consultation Requested: 02/20/2025 at 2200
Date/Time Consultation Performed: 02/20/2025 at 2230
Requesting Provider: Dr. Copeland
Performing Provider: Dr. Buenrostro
Reason for Consultation: delivery
Consultation - Neonatology
Maternal Labs
Blood Type: A Positive
Antibody Screen: Negative
RPR: Nonreactive
Rubella: Immune
Hep B S Ag: Negative
Hep C: Negative
HIV: Nonreactive
Group B Strep: Positive
Chlamydia/GC: Negative
Consult
Points discussed at consult:
- Management at delivery including the possibility of CPAP/intubation/surfactant discussed
- Respiratory: RDS possibility with possibility of worsening for 24-48 hrs, management including CPAP/surfactant/ventilator support may be required
- Nutrition: Hypoglycemia, need for IV fluids, gradual feed advance, Gavage feeding, importance of colostrum feeding, initiation of expression of colostrum within 3-4 hours, availability of donor milk, safety fo donor milk etc. were discussed. Mom
desires to breastfeed, plans to pump. Parents agree to donor BM and are okay with formula if needed.
- Procedures: Intubation, CPAP, IV placement, blood tests, umbilical arterial or venous lines, gavage feedings were discussed
- CVS: possibility of PDA not discussed in detail at this time
- MOLDING LINE OPERATOR: Rare possibility of IVH and need for head US, grading of IVH and nursing home effects of Grade III/IV although extremely rare at >32 weeks were not discussed at this time
- Jaundice possibility and need for phototherapy discussed
- Family Centered Care: Discussed FCC with emphasis on parental participation during sign off and during management rounds and is encouraged. Availability of vlad eyes camera also discussed
- COVID-19: Visitation policy, modifications related to COVID-19, ever changing guidelines were discussed. They are aware that their daughter is under the age limit to visit.
Mom and Dad were given the opportunity to ask questions throughout and open invitation to call if any questions come as they absorb all the information given so far. Parents signed ICN admission and donor BM consent.
Face to Face Time
Total Bghr-[id number] Time (in Minutes): 30
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
[2025-02-21 00:56] LABS: INR 0.91; PT 12.8 Sec (11.4-14.6)
[2025-02-21 01:18] VITALS: BP 135/67
[2025-02-21 01:30] VITALS: BP 118/67
[2025-02-21 01:45] VITALS: BP 121/81
[2025-02-21] MEDS: MAGNESIUM SULFATE 100 IV (02:06)
[2025-02-21] MEDS: LR 1000 IV ×2 (02:06→17:04)
[2025-02-21] MEDS: MAGNESIUM SULFATE 40 GRAM 1000 IV ×2 (02:30→20:31)
[2025-02-21] MEDS: BENADRYL 25 MG IV (02:30)
[2025-02-21] MEDS: MORPHINE SULFATE 2 MG IV (02:33)
[2025-02-21] MEDS: PITOCIN 30 UNITS/NSS 500 ML IV (02:54)
[2025-02-21] MEDS: TORADOL 15 MG IV ×4 (03:02→21:10)
[2025-02-21] MEDS: PROCARDIA XL (EXTENDED RELEASE) 60 MG PO (07:55)
--- NOTE | 2025-02-21 07:55 | W.PN.ANS.POP ---
Anesthesia Post Operative
- Anesthesia Post Op Note
Vital Signs Stable-See Nursing Note: Yes
Airway Patent: Yes
Adequate Pain Control: Yes
Change in Mental Status: No
Current Postoperative Nausea & Vomiting: No
Anesthesia Complications: No
General Anesthetic Recall: No
Unplanned Admission: No
Post Op Hydration Adequate: Yes
[2025-02-21] MEDS: PEPCID 40 MG PO (07:56)
[2025-02-21] MEDS: SINGULAIR 10 MG PO (07:56)
[2025-02-21] MEDS: ZOLOFT 50 MG PO (07:56)
[2025-02-21] MEDS: SENOKOT-S 1 TABLET PO (07:57)
[2025-02-21] MEDS: FEOSOL 325 MG PO (07:57)
[2025-02-21] MEDS: KCL 20 MEQ PO (07:58)
[2025-02-21] MEDS: ADVAIR HFA 115/21 MCG INHALER 2 PUFF INH ×2 (07:58→20:31)
[2025-02-21] MEDS: PRENATAL PLUS 1 TABLET PO (07:58)
[2025-02-21 09:54] LABS: Hematocrit 27.6 % (37.0-47.0); Hemoglobin 9.3 g/dL (12.0-16.0); Mean Corp Hgb Conc. 33.7 g/dL (33.0-37.0); Mean Corpuscular Hgb 28.4 pg (27.0-31.0); Mean Corpuscular Volume 84.4 fL (81.0-99.0); Mean Platelet Volume 10.6 fL (7.4-10.4); Platelet Count 341 10^3/uL (130-400); Red Blood Cell Count 3.27 10^6/uL (4.20-5.40); Red Cell Dist. Width 14.5 % (11.5-14.5); White Blood Cell Count 15.6 10^3/uL (4.8-10.8)
[2025-02-21 10:08] LABS: ALT (SGPT) 243 U/L (0-35); AST (SGOT) 187 U/L (14-36); Albumin 2.8 g/dl (3.5-5.0); Alkaline Phosphatase 247 U/L (38-126); Blood Urea Nitrogen 4 mg/dl (7-17); Calcium 7.4 mg/dl (8.4-10.2); Carbon Dioxide 25 mmol/L (22-30); Chloride 107 mmol/L (98-107); Estimated Creatinine Clearance 116 ml/min; Glucose 165 mg/dl (70-99); Magnesium 4.8 mg/dl (1.6-2.3); Potassium 3.7 mmol/L (3.5-5.1); Sodium 135 mmol/L (135-145); Total Bilirubin 1.5 mg/dl (0.2-1.3); Total Protein 5.3 g/dl (6.3-8.2); eGFR > 60.00
[2025-02-21] MEDS: ProAIR HFA INHALER 1 PUFF INH (20:31)
[2025-02-21] MEDS: MYLICON 80 MG PO (21:15)
[2025-02-22] MEDS: MOTRIN 600 MG PO ×3 (03:36→20:11)
[2025-02-22] MEDS: ProAIR HFA INHALER 1 PUFF INH ×3 (03:47→15:57)
[2025-02-22] MEDS: ADVAIR HFA 115/21 MCG INHALER 2 PUFF INH ×2 (07:21→19:25)
[2025-02-22] MEDS: MYLICON 80 MG PO ×3 (08:06→15:44)
[2025-02-22] MEDS: PRENATAL PLUS 1 TABLET PO (08:06)
[2025-02-22] MEDS: PEPCID 40 MG PO (08:06)
[2025-02-22] MEDS: ZOLOFT 50 MG PO (08:07)
[2025-02-22] MEDS: SINGULAIR 10 MG PO (08:07)
[2025-02-22] MEDS: FEOSOL 325 MG PO (08:07)
[2025-02-22] MEDS: KCL 20 MEQ PO (08:07)
[2025-02-22] MEDS: PROCARDIA XL (EXTENDED RELEASE) 60 MG PO (08:10)
[2025-02-22] MEDS: LR IV (08:18)
[2025-02-22 09:30] LABS: % Basophils 0.2 % (0-2); % Eosinophils 0.7 % (0-6); % Immature Granulocytes 0.9 % (0-0.5); % Lymphocytes 17.3 % (20.5-51.1); % Monocytes 5.6 % (1.7-9.3); % Neutrophils 75.3 % (42.2-75.2); Absolute Eosinophils 0.1 10^3/uL (0-0.7); Absolute Immature Granulocytes 0.1 10^3/uL (0-0.05); Absolute Lymphocytes 2.1 10^3/uL (1.2-3.4); Absolute Monocytes 0.7 10^3/uL (0.1-0.6); Absolute Neutrophils 9.2 10^3/uL (1.4-6.5); Hematocrit 29.4 % (37.0-47.0); Hemoglobin 9.8 g/dL (12.0-16.0); Mean Corp Hgb Conc. 33.3 g/dL (33.0-37.0); Mean Corpuscular Hgb 28.7 pg (27.0-31.0); Mean Platelet Volume 10.1 fL (7.4-10.4); Nucleated Red Blood Cells % 0 %; Platelet Count 369 10^3/uL (130-400); Red Blood Cell Count 3.42 10^6/uL (4.20-5.40); Red Cell Dist. Width 15.5 % (11.5-14.5); White Blood Cell Count 12.3 10^3/uL (4.8-10.8)
[2025-02-22 09:57] LABS: ALT (SGPT) 178 U/L (0-35); AST (SGOT) 76 U/L (14-36)
[2025-02-22] MEDS: SENOKOT-S 1 TABLET PO (11:57)
[2025-02-22 13:44] LABS: Syphilis/T. pallidum Ab Reflex Negative (Negative)
[2025-02-22] MEDS: TYLENOL 650 MG PO (15:47)
[2025-02-23] MEDS: TYLENOL 650 MG PO ×3 (03:49→14:26)
[2025-02-23] MEDS: MOTRIN 600 MG PO ×3 (03:49→14:26)
[2025-02-23] MEDS: ProAIR HFA INHALER 1 PUFF INH (07:59)
[2025-02-23] MEDS: ADVAIR HFA 115/21 MCG INHALER 2 PUFF INH (07:59)
[2025-02-23] MEDS: PRENATAL PLUS 1 TABLET PO (09:12)
[2025-02-23] MEDS: ZOLOFT 50 MG PO (09:13)
[2025-02-23] MEDS: FEOSOL 325 MG PO (09:13)
[2025-02-23] MEDS: SINGULAIR 10 MG PO (09:14)
[2025-02-23] MEDS: PEPCID 40 MG PO (09:14)
[2025-02-23] MEDS: MYLICON 80 MG PO (09:15)
[2025-02-23] MEDS: SENOKOT-S 1 TABLET PO (09:15)
[2025-02-23] MEDS: KCL 20 MEQ PO (09:15)
[2025-02-23] MEDS: PROCARDIA XL (EXTENDED RELEASE) 60 MG PO (09:21)
== END 2025-02-23 18:23 | disposition home or self-care (01) | DRG 788 ==
LOC: LDRP 20:55
PROVIDERS: Obstetrics & Gynecology; ADMITTING PHYSICIAN Obstetrics & Gynecology
PROC: 10D00Z1 Extraction of Products of Conception, Low, Open Approach (ICD-10-PCS; 2025-02-22)
DX: O14.14 Severe pre-eclampsia complicating childbirth (principal); Z3A.34 34 weeks gestation of pregnancy; Z37.0 Single live birth; O24.420 Gestational diabetes mellitus in childbirth, diet controlled; O34.211 Maternal care for low transverse scar from previous cesarean delivery; Z83.3 Family history of diabetes mellitus; O99.824 Streptococcus B carrier state complicating childbirth
CPT/HCPCS: 88307; 80053; 81003; 81015; 82570; 82803; 82962; 83615; 83735; 84156; 84450; 84460; 84550; 85025; 85027; 85610; 85730; 86780; 86850; 86900; 86901; 94640

== ENCOUNTER → 2025-08-05 14:52 | Outpatient (REF) | payer BC, SELFPAY | LOC: RAD 14:52 | PROVIDERS: ATTENDING PHYSICIAN Obstetrics & Gynecology; FAMILY PHYSICIAN Internal Medicine | DX: R10.20 Pelvic and perineal pain unspecified side (principal); R10.31 Right lower quadrant pain | CPT/HCPCS: 76830; 76856 ==